=== PATIENT | female | born 1990 | race Caucasian/White ===

== ENCOUNTER → 2018-01-24 | Outpatient (REF) | payer OTHER | LOC: M LAB REF 18:02 | DX: Z12.4 Encounter for screening for malignant neoplasm of cervix (principal) ==

== ENCOUNTER → 2018-02-03 | Outpatient (CLI) | payer OTHER | LOC: M RAD 08:41 | DX: Z30.431 Encounter for routine checking of intrauterine contraceptive device (principal) | CPT/HCPCS: 76856 ==